=== PATIENT | female | born 1935 | race Caucasian/White ===

== ENCOUNTER 2020-01-25 15:42 | Inpatient (IN) | payer MEDICARE, OTHER ==
[~2020-01-25] VITALS: Ht 154.9 cm; Wt 52.6 kg
--- NOTE | 2020-01-25 16:00 | NUR ---
Pt's daughter arrived and is at bedside. spoke with pt and daughter about plan of care.
[2020-01-25 16:14] LABS: BASOPHILS % (AUTO) 0.7 % (0.0-2.0); EOSINOPHILS # (AUTO) 0.1 K/uL (0.0-0.7); HEMATOCRIT 37.4 % (31.2-41.9); HEMOGLOBIN 12.5 g/dL (10.9-14.3); LYMPHOCYTES # (AUTO) 0.8 K/uL (20.0-40.0); LYMPHOCYTES % (AUTO) 12.4 % (20.5-51.5); MEAN CORPUSCULAR HEMOGLOBIN 30.6 uug (24.7-32.8); MEAN CORPUSCULAR HGB CONC 34 g/dL (32.3-35.6); MEAN CORPUSCULAR VOLUME 91.3 fL (75.5-95.3); MONOCYTES # (AUTO) 0.8 K/uL (2.0-10.0); MONOCYTES % (AUTO) 12.2 % (0.0-11.0); NEUTROPHILS # (AUTO) 4.8 K/uL (1.8-8.9); NEUTROPHILS % (AUTO) 73.7 % (38.5-71.5); PLATELET COUNT (AUTO) 286 K/uL (179-408); RED BLOOD CELL COUNT(AUTO) 4.09 MIL/uL (3.63-4.92); WHITE BLOOD COUNT (AUTO) 6.4 K/uL (3.8-11.8)
[2020-01-25 16:18] LABS: CARBON DIOXIDE 28 mmol/L (21-32); CHLORIDE 98 mmol/L (98-107); CREATININE 1.1 mg/dL (0.6-1.3); GLUCOSE 88 mg/dL (74-106); POTASSIUM 4.1 mmol/L (3.5-5.1); UREA NITROGEN, BLOOD 47 mg/dL (7-18)
[2020-01-25] MEDS ORDERED: POLY17PO4 PO (16:21)
[2020-01-25] MEDS ORDERED: LUBI24CA5 PO (16:21)
[2020-01-25] MEDS ORDERED: DICY20TA11 PO (16:21)
[2020-01-25] MEDS ORDERED: IBUP-76 PO (16:21)
[2020-01-25] MEDS ORDERED: CLON0.5T4 PO (16:21)
[2020-01-25] MEDS ORDERED: LINA145C PO (16:21)
[2020-01-25] MEDS ORDERED: PANT40TA49 PO (16:21)
[2020-01-25] MEDS ORDERED: ONDA-104 PO (16:21)
[2020-01-25] MEDS ORDERED: PHEN95TA44 PO (16:21)
[2020-01-25] MEDS ORDERED: FLUO20CA36 PO (16:21)
[2020-01-25] MEDS ORDERED: LIDO1KIT TP (16:21)
[2020-01-25 16:24] LABS: ALANINE AMINOTRANSFERASE 58 U/L (14-59); ALKALINE PHOSPHATASE 70 U/L (50-136); ASPARTATE AMINOTRANSFERASE 48 U/L (15-37); BILIRUBIN,DIRECT 0.3 mg/dL (0.0-0.2); BILIRUBIN,TOTAL 0.6 mg/dL (0.2-1.0); TOTAL PROTEIN, SERUM 7.7 g/dL (6.4-8.2)
[2020-01-25 16:29] LABS: ACETAMINOPHEN < 2.0 ug/mL (10-30); ETHANOL < 3 MG/DL (0-0)
[2020-01-25] MEDS ORDERED: IV NORMAL SALINE 500 ML BAG IV ONE (16:30)
[2020-01-25 17:00] LABS: *CLARITY,URINE SLIGHTLY CLOUDY (CLEAR); *COLOR,URINE YELLOW (YELLOW); *KETONES,URINE 2+ (NEGATIVE); *UROBILINOGEN,URINE 0.2 E.U./dl (NORMAL); LEUKOCYTE ESTERASE ,URINE NEGATIVE (NEGATIVE); NITRITE, URINE NEGATIVE (NEGATIVE); UGLUCOSE NEGATIVE (NEGATIVE)
[2020-01-25 17:06] LABS: *BILIRUBIN,URIN 2+ (NEGATIVE)
[2020-01-25 17:08] LABS: *BLOOD, URINE NEGATIVE (NEGATIVE)
[2020-01-25 17:12] LABS: BACTERIA,URINE NONE SEEN /HPF (NONE SEEN); SQUAMOUS EPITHELIAL CELL,UR MANY /HPF (NONE SEEN); URINE AMORPHOUS URATE MANY /HPF
[2020-01-25 17:13] LABS: MUCUS,URINE MANY /LPF (0-FEW)
[2020-01-25 17:16] LABS: *AMPHETAMINE, URINE NEGATIVE (NEGATIVE); *BARBITURATE, URINE NEGATIVE (NEGATIVE); *CANNABINOID, URINE POSITIVE (NEGATIVE); *COCCAINE, URINE NEGATIVE (NEGATIVE); *OPIATE, URINE NEGATIVE (NEGATIVE); *PHENCYCLIDINE SCREEN,URINE NEGATIVE (NEGATIVE)
--- NOTE | 2020-01-25 17:29 | NUR ---
Pt trans to [facility], NAD noted.
[2020-01-25 17:45] VITALS: BP 156/58
[2020-01-25] MEDS ORDERED: BLOOD SUGAR DIAGNOSTIC 1 EACH STRIP VI ONE (17:45)
[2020-01-25] MEDS ORDERED: MAG HYDROX/AL HYDROX/SIMETH 30 ML LIQUID UDC PO PRN (17:45)
[2020-01-25] MEDS ORDERED: MAGNESIUM HYDROXIDE 30 ML LIQUID UDC PO PRN (17:45)
[2020-01-25 20:57] VITALS: BP 127/50
[2020-01-25] MEDS: TEMAZEPAM 7.5 MG CAPSULE PO PRN (21:50)
--- NOTE | 2020-01-26 05:52 | NUR ---
patient was calm and cooperative through the shift, slept intermittently. Patient denies having SI/plan, appropriate in conversation, clear speech, pleasant demeanor . Oriented to self and situation. Drank several cups of water but refused tylenol for Rt. ankle pain, and refused juice and snacks. Refused to be in the room and wanted to stay in the hallway.
[2020-01-26 07:30] VITALS: BP 141/53
[2020-01-26 07:34] LABS: BILIRUBIN,TOTAL 0.6 mg/dL (0.2-1.0); POTASSIUM 3.7 mmol/L (3.5-5.1); TOTAL PROTEIN, SERUM 6.5 g/dL (6.4-8.2)
--- NOTE | 2020-01-26 09:57 | NUR ---
Received patient awake, alert and oriented sitting in chair. Patient is calm, cooperative, and redirectable. She has appropriate interaction with staff. Patient denies SI/HI, denies AH/VH. Patient is confused and disoriented, she requires reality orientation on reason for admission. She minimizes events leading to hospitalization. Patient requires assistance with ADL's and self care, requires assistance with ambulation due to right foot injury. Patient is provided with education about impulse control, able to verbalize understanding.
[2020-01-26] MEDS: FLUOXETINE HCL 20 MG CAPSULE PO SCH (10:50)
--- NOTE | 2020-01-26 13:59 | NUR ---
Family Contact: SW attempted to speak with pt's daughter Padmini [[phone]] but there was no answer and no voice mailbox available to leave message. SW will attempt to contact pt family at a later time regarding safe and proper discharge plan for this pt.
--- NOTE | 2020-01-26 13:59 | NUR ---
Initial Discharge Plan: Pt is currently a resident at [facility] [[email or web address] [[address] [address]; [phone]] and will be discharged back to the facility when ready. JESSICA will speak with pt's daughter Padmini [[phone]]. JESSICA will continue to collaborate with pt, family, and MD regarding appropriate discharge plans for this pt. SW will form a safe and proper discharge plan.
--- NOTE | 2020-01-26 14:35 | NUR ---
Family Contact: JESSICA spoke with Padmini, pts daughter, at [phone], who confirmed that pt will be returning to [facility]. Padmini clarified that [employer] is the property management company of the independent living facility where pt resides [[address] [place] [address]], and pt receives in-home living assistance services from [facility], business services representative Catherine ([phone]).
[2020-01-26 16:05] VITALS: BP 117/46
[2020-01-26] MEDS: DIVALPROEX 125 MG TABLET.DR PO SCH (16:45)
[2020-01-26] MEDS ORDERED: ONDANSETRON HCL 4 MG TABLET PO PRN (16:45)
[2020-01-26] MEDS ORDERED: DICYCLOMINE HCL 20 MG TABLET PO PRN (16:45)
[2020-01-26] MEDS ORDERED: MIRALAX 17 GM POWD.PACK PO PRN (16:45)
[2020-01-26] MEDS: OLANZAPINE 2.5 MG TABLET PO SCH (20:15)
[2020-01-26 20:18] VITALS: BP 127/51
--- NOTE | 2020-01-26 21:04 | NUR ---
Received patient in [facility]. Patient is calm, cooperative, hyperverbal, attention seeking and redirectable. Patient is confused and disoriented, poor insight and por judgement. Provided assistance when patient needed to use the restroom due to right foot injury. Patient is med compliant. No behavioral issue at this time. Will remain in a psych facility for further evaluation and treatment.
[2020-01-26] MEDS: TEMAZEPAM 7.5 MG CAPSULE PO PRN (21:45)
[2020-01-26] MEDS: CLONAZEPAM 0.5 MG TABLET PO PRN (23:28)
[2020-01-27 07:30] VITALS: BP 137/61
[2020-01-27] MEDS: DIVALPROEX 125 MG TABLET.DR PO SCH ×2 (09:23→16:26)
[2020-01-27] MEDS: PANTOPRAZOLE SODIUM 40 MG TABLET.DR PO SCH (09:23)
[2020-01-27] MEDS: FLUOXETINE HCL 20 MG CAPSULE PO SCH (09:23)
[2020-01-27 16:00] VITALS: BP 118/54
[2020-01-27 20:09] VITALS: BP 105/43
[2020-01-27] MEDS: OLANZAPINE 2.5 MG TABLET PO SCH (20:52)
[2020-01-27] MEDS: TEMAZEPAM 7.5 MG CAPSULE PO PRN (22:11)
--- NOTE | 2020-01-28 06:58 | NUR ---
Pt. verbally responsive, tearful at times, and restless. Cooperative with medications. swallowed whole routine meds. Pt. noted with increase behavior and unable to sleep and PRN was given as order. Pt noted with urine culture e.coli. MD aware and acknowledged reviewed. Pt slept approx 6 hours during night. breathing even and awake to touch.
[2020-01-28 07:30] VITALS: BP 130/62
[2020-01-28] MEDS: PANTOPRAZOLE SODIUM 40 MG TABLET.DR PO SCH (08:57)
[2020-01-28] MEDS: FLUOXETINE HCL 20 MG CAPSULE PO SCH (08:57)
[2020-01-28] MEDS: DIVALPROEX 125 MG TABLET.DR PO SCH ×2 (08:57→17:44)
[2020-01-28 16:00] VITALS: BP 125/48
[2020-01-28] MEDS: CEphaleXIN 250 MG CAPSULE PO SCH ×2 (17:54→22:38)
[2020-01-28 20:22] VITALS: BP 140/52
[2020-01-28] MEDS: OLANZAPINE 2.5 MG TABLET PO SCH (20:24)
--- NOTE | 2020-01-28 21:03 | NUR ---
PATIENT RECEIVED IN HALLWAY SHE IS CALM AND COOPERATIVE. PATIENT COMPLAINT WITH MEDICATION. PATIENT IN NO APPARENT DISTRESS WILL CONTINUE TO MONITOR. PATIENT IS ALERT AND ORIENTED X1.PATIENT IS EASILY IRRITABLE, HOWEVER IS REDIRECTABLE, WILL CONTINUE TO MONITOR. PATIENT BECOMES TEARFUL AT TIMES REQUIRES REDIRECTION.
[2020-01-29] MEDS: CEphaleXIN 250 MG CAPSULE PO SCH ×3 (06:17→21:04)
[2020-01-29 07:30] VITALS: BP 137/53
--- NOTE | 2020-01-29 07:30 | NUR ---
resting comfortably on bed, awaiting breakfast. no discomfort verbalized
[2020-01-29] MEDS: IBUPROFEN 200 MG TABLET PO PRN ×2 (08:35→16:55)
[2020-01-29] MEDS: FLUOXETINE HCL 20 MG CAPSULE PO SCH (08:35)
[2020-01-29] MEDS: PANTOPRAZOLE SODIUM 40 MG TABLET.DR PO SCH (08:35)
[2020-01-29] MEDS: DIVALPROEX 125 MG TABLET.DR PO SCH ×2 (08:35→16:53)
--- NOTE | 2020-01-29 09:26 | NUR ---
sleeping comfortable, no distress noted.
[2020-01-29 16:28] VITALS: BP 133/54
[2020-01-29 20:08] VITALS: BP 140/50
[2020-01-29] MEDS: OLANZAPINE 2.5 MG TABLET PO SCH (21:03)
[2020-01-29] MEDS: CLONAZEPAM 0.5 MG TABLET PO PRN (21:09)
--- NOTE | 2020-01-29 23:16 | NUR ---
RECEIVED PATIENT IN HALLWAY IN A FIORELLA CHAIR. SHE IS EASILY IRRITABLE AND KEPT PUTTING HER FINGERS IN HER MOUTH SEVERAL TIMES SAYING 'I NEED MY DENTURES.AM NOT KIDDING'. SHE WAS RE DIRECTED.SHE THEN STARTED PULLING OUT HER DIAPER. HAS POOR INSIGHT.SHE IS COOPERATIVE WITH HER MEDICATIONS AND CARE. SLEEPING IN BED AND VISUAL CHECKS MADE ON HER FOR SAFETY.WILL CONTINUE TO MONITOR.
[2020-01-30] MEDS: CEphaleXIN 250 MG CAPSULE PO SCH ×3 (06:17→21:06)
--- NOTE | 2020-01-30 06:25 | NUR ---
SLEPT FOR ABOUT 8;00HRS.TAB KEFLEX 250MG GIVEN.LIBERAL FLUIDS ENCOURAGED.
[2020-01-30 07:30] VITALS: BP 149/49
[2020-01-30] MEDS: DIVALPROEX 125 MG TABLET.DR PO SCH ×2 (08:57→16:07)
[2020-01-30] MEDS: PANTOPRAZOLE SODIUM 40 MG TABLET.DR PO SCH (08:57)
[2020-01-30] MEDS: FLUOXETINE HCL 20 MG CAPSULE PO SCH (08:57)
[2020-01-30] MEDS: CLONAZEPAM 0.5 MG TABLET PO PRN ×2 (10:46→19:41)
[2020-01-30 16:59] VITALS: BP 130/48
[2020-01-30] MEDS: ACETAMINOPHEN 325 MG TABLET PO PRN (19:40)
[2020-01-30 20:40] VITALS: BP 109/54
[2020-01-30] MEDS: OLANZAPINE 2.5 MG TABLET PO SCH (21:06)
[2020-01-30] MEDS: TEMAZEPAM 7.5 MG CAPSULE PO PRN (23:22)
[2020-01-31] MEDS: CEphaleXIN 250 MG CAPSULE PO SCH ×3 (05:56→21:14)
--- NOTE | 2020-01-31 06:34 | NUR ---
Received Pt in the hallway, awake and sitting up in a payal chair. A+Ox1-2, Pt is confused, forgetful, and disorganized. Noted to have mild temperature at the beginning of shift at 99.6, Pt also noted to be anxious and restless. Cooling measures administered and Tylenol 650mg with Klonopin 0.25mg administered with good effect. Pt's temp upon re-check was 98.4, all other VS stable, denied pain. Will continue to monitor.
[2020-01-31 07:30] VITALS: BP 134/50
[2020-01-31] MEDS: FLUOXETINE HCL 20 MG CAPSULE PO SCH (08:16)
[2020-01-31] MEDS: DIVALPROEX 125 MG TABLET.DR PO SCH ×2 (08:16→16:34)
[2020-01-31] MEDS: PANTOPRAZOLE SODIUM 40 MG TABLET.DR PO SCH (08:16)
--- NOTE | 2020-01-31 08:48 | NUR ---
Received patient awake, alert and oriented to person only sitting in chair. Patient is disoriented and confused, she requires frequent reality orientation. Patient is labile in mood, she frequently cries and yells to herself without stimuli and requires redirection. patient is encouraged to communicate her needs to staff appropriately. Patient denies SI/HI, denies AH/Vh but appears internally preoccupied and appears suspicious of staff. Patient is able to tolerate food and fluids, but requires staff assistance with ADL's and self care. Patient is medication adherent, no adverse reaction noted.
[2020-01-31] MEDS: ACETAMINOPHEN 325 MG TABLET PO PRN (12:59)
[2020-01-31 13:00] VITALS: BP 119/41
[2020-01-31] MEDS: CLONAZEPAM 0.5 MG TABLET PO PRN (19:32)
[2020-01-31 20:28] VITALS: BP 128/61
[2020-01-31] MEDS: OLANZAPINE 2.5 MG TABLET PO SCH (20:30)
[2020-01-31] MEDS: IBUPROFEN 200 MG TABLET PO PRN (20:30)
[2020-01-31] MEDS: TEMAZEPAM 7.5 MG CAPSULE PO PRN (21:38)
[2020-02-01] MEDS: CEphaleXIN 250 MG CAPSULE PO SCH ×3 (05:44→21:10)
--- NOTE | 2020-02-01 06:53 | NUR ---
Received Pt in the hallway, awake and sitting up in a payal chair. A+Ox1-2, Pt is confused, forgetful, disoriented, and disorganized. Pt also noted to be anxious and restless. Klonopin 0.25mg administered with minimal effect. Continued to be restless, Restoril 7.5mg administered with moderate effect. VS stable, generalized chronic pain controlled with Motrin 200mg. Noted to have episodes of unprovoked crying out and yelling, redirection and emotional support provided. ADLS provided, safety maintained.
[2020-02-01 07:30] VITALS: BP 135/50
[2020-02-01] MEDS: PANTOPRAZOLE SODIUM 40 MG TABLET.DR PO SCH (08:23)
[2020-02-01] MEDS: DIVALPROEX 125 MG TABLET.DR PO SCH ×2 (08:23→16:22)
[2020-02-01] MEDS: FLUOXETINE HCL 20 MG CAPSULE PO SCH (08:23)
--- NOTE | 2020-02-01 09:09 | NUR ---
Social Work PC Hearing Notification: packing room worker contacted patients daughter Padmini, ([phone]) and notified patients probable cause of hearing today.
[2020-02-01] MEDS: ACETAMINOPHEN 325 MG TABLET PO PRN (11:38)
[2020-02-01] MEDS: CLONAZEPAM 0.5 MG TABLET PO PRN (13:19)
--- NOTE | 2020-02-01 15:05 | NUR ---
Social Work Individual Therapy: Air Cargo Specialist met with patient and provided brief individual counseling. Air Cargo Specialist prompted patient to continue to participate in self-care, bathing, and grooming. Patient presents disoriented and with disorganized thought process. Patient appears paranoid of her surroundings and in unable to engage in a meaningful conversation. Air Cargo Specialist will remain available to the patient and continue to provide support as needed.
[2020-02-01 15:55] VITALS: BP 137/49
[2020-02-01 20:20] VITALS: BP 112/48
[2020-02-01] MEDS: OLANZAPINE 2.5 MG TABLET PO SCH (20:23)
--- NOTE | 2020-02-01 21:22 | NUR ---
GPS: Pt sitting up in payal chair at [facility], A/O x2. Pt is confused, and trying to remove underpants, pt. also very talkative and incoherent words. Pt also noted to be anxious, restless and forgetful. Frequently redirected and reoriented to place and person. Pt. compliant with routine meds and cooperative with care, will continue monitor due to increase anxiousness and talkative.
[2020-02-01] MEDS: TEMAZEPAM 7.5 MG CAPSULE PO PRN (23:44)
--- NOTE | 2020-02-02 02:15 | NUR ---
Pt. was unable to fall asleep and trying to get out of bed unassisted, stripping clothing off with agitation. PRN Restoril was administered as order and monitor with noted effectiveness.
[2020-02-02] MEDS: CEphaleXIN 250 MG CAPSULE PO SCH ×3 (06:05→22:57)
--- NOTE | 2020-02-02 06:33 | NUR ---
Pt. PRN was effective, pt slept 6.45min during shift. No new excessive behavior noted. Am marcial care provided and pt was left in bed resting.
[2020-02-02 07:30] VITALS: BP 148/56
[2020-02-02] MEDS: FLUOXETINE HCL 20 MG CAPSULE PO SCH (08:29)
[2020-02-02] MEDS: DIVALPROEX 125 MG TABLET.DR PO SCH ×2 (08:29→16:42)
[2020-02-02] MEDS: PANTOPRAZOLE SODIUM 40 MG TABLET.DR PO SCH (08:29)
[2020-02-02 16:00] VITALS: BP 129/37
[2020-02-02] MEDS: CLONAZEPAM 0.5 MG TABLET PO PRN (16:42)
--- NOTE | 2020-02-02 17:24 | NUR ---
Received patient this am in bed. Assisted to chair. Patient calm at times but had many outbursts of anxiety which required redirection and medication. Patient is very needy and paranoid of the other patients. Multiple times patients behavior quickly escalated and patient would scream and cry, needing to be reassured. No distress at this moment but continuing to monitor for safety and behavioral problems.
[2020-02-02] MEDS: IBUPROFEN 200 MG TABLET PO PRN (18:19)
[2020-02-02] MEDS: OLANZAPINE 2.5 MG TABLET PO SCH (20:31)
[2020-02-02] MEDS: ACETAMINOPHEN 325 MG TABLET PO PRN (20:38)
[2020-02-02 20:51] VITALS: BP 134/49
[2020-02-03] MEDS: CEphaleXIN 250 MG CAPSULE PO SCH ×3 (06:00→21:16)
[2020-02-03 07:30] VITALS: BP 165/57
[2020-02-03] MEDS: PANTOPRAZOLE SODIUM 40 MG TABLET.DR PO SCH (08:35)
[2020-02-03] MEDS: DIVALPROEX 125 MG TABLET.DR PO SCH ×2 (08:35→17:29)
[2020-02-03] MEDS: FLUOXETINE HCL 20 MG CAPSULE PO SCH (08:35)
[2020-02-03] MEDS: CLONAZEPAM 0.5 MG TABLET PO PRN (09:47)
[2020-02-03] MEDS ORDERED: CLONIDINE HCL 0.1 MG TABLET PO PRN (10:30)
[2020-02-03] MEDS: ACETAMINOPHEN 325 MG TABLET PO PRN (10:32)
[2020-02-03 16:00] VITALS: BP 144/93
[2020-02-03 20:00] VITALS: BP 142/70
[2020-02-03] MEDS: OLANZAPINE 2.5 MG TABLET PO SCH (21:16)
[2020-02-03] MEDS: TEMAZEPAM 7.5 MG CAPSULE PO PRN (22:58)
[2020-02-04] MEDS: CEphaleXIN 250 MG CAPSULE PO SCH ×2 (06:14→13:16)
[2020-02-04 07:30] VITALS: BP 162/50
[2020-02-04] MEDS: DIVALPROEX 125 MG TABLET.DR PO SCH ×2 (08:44→16:23)
[2020-02-04] MEDS: PANTOPRAZOLE SODIUM 40 MG TABLET.DR PO SCH (08:44)
[2020-02-04] MEDS: FLUOXETINE HCL 20 MG CAPSULE PO SCH (08:44)
--- NOTE | 2020-02-04 08:51 | NUR ---
Gps/Accountant Certified Public- Loud , yelling demanding behavior this am, [place], needed redirections . Toileted as needed, continent of urine, urgency noted. Compliant with routine am meds.Safety reviewed and emphasized.
[2020-02-04] MEDS: CLONAZEPAM 0.5 MG TABLET PO PRN (09:30)
--- NOTE | 2020-02-04 12:51 | NUR ---
Gpa?subscription agent- Remains up on her payal- chair by the Nurses station, monitored closely for her needs. Patient called daughter she told her to come pick her up , she is going home. Daughter spoked to [facility] no dc. plan at this time, daughter was well informed.
[2020-02-04] MEDS: IBUPROFEN 200 MG TABLET PO PRN (13:01)
--- NOTE | 2020-02-04 15:05 | NUR ---
Social Work Individual Therapy: Air Defense Artillery Senior Sergeant met with patient and provided brief individual counseling. Air Defense Artillery Senior Sergeant prompted patient to continue to participate in self-care, bathing, and grooming. Patient presents anxious and disorganized. Patient is yelling intermittently and is unable to maintain a meaningful conversation. Air Defense Artillery Senior Sergeant will remain available to the patient and continue to provide support as needed.
--- NOTE | 2020-02-04 15:10 | NUR ---
Social Work Firearms Report ([employer]): Case Finisher completed and submitted a [employer] firearms report for [address] grave disability certification. A copy of report has been placed in patient chart.
[2020-02-04 15:15] VITALS: BP 115/47
[2020-02-04] MEDS: OLANZAPINE 2.5 MG TABLET PO SCH (20:23)
[2020-02-04 21:10] VITALS: BP 135/47
[2020-02-04] MEDS: TEMAZEPAM 7.5 MG CAPSULE PO PRN (21:54)
--- NOTE | 2020-02-04 23:08 | NUR ---
PATIENT RECEIVED IN THE HALLWAY AWAKE SITTING UP IN FIORELLA-CHAIR. PATIENT ALERT/ORIENTED X1, PATIENT REMAINS CONFUSED, FORGETFUL, DISORIENTED AND DISORGANIZED. PATIENT COMPLAINT WITH MEDICATION. NO APPARENT DISTRESS NOTED, WILL CONTINUE TO MONITOR.
[2020-02-05 07:30] VITALS: BP 161/59
[2020-02-05] MEDS: IBUPROFEN 200 MG TABLET PO PRN ×2 (07:38→13:28)
[2020-02-05] MEDS: FLUOXETINE HCL 20 MG CAPSULE PO SCH (08:14)
[2020-02-05] MEDS: DIVALPROEX 125 MG TABLET.DR PO SCH ×2 (08:14→17:20)
[2020-02-05] MEDS: PANTOPRAZOLE SODIUM 40 MG TABLET.DR PO SCH (08:14)
[2020-02-05] MEDS: CLONAZEPAM 0.5 MG TABLET PO PRN ×2 (10:44→21:43)
[2020-02-05 15:18] VITALS: BP 124/49
--- NOTE | 2020-02-05 16:30 | NUR ---
Gps/Sludge Filtration Operator- Constant redirections provided, patient calling out, anxious, complained skin very dry, requesting lotion to help her skin, lotion offered, verbalized relief. Noted patient disrobing , discouraged from doing so.
[2020-02-05 20:00] VITALS: BP 118/56
--- NOTE | 2020-02-05 20:00 | NUR ---
RECEIVE PATIENT SITING IN A FIORELLA CHAIR IN THE HALLWAY CLOSE TO THE NURSING STATION. SHE IS NOTED A/O X 2. HYPERVERBAL. AFFECT IS BRIGHT, MOOD IS ANXIOUS. PATIENT DENIED SI/HI/VH/AH. SHE IS ABLE TO CFS. V/S STABLE AT THIS TIME. PATIENT IS REASSURED FOR HER SAFETY. SAFETY AND FALL PRECAUTION IN PLACE. WILL CONTINUE TO MONITOR,
[2020-02-05] MEDS: OLANZAPINE 2.5 MG TABLET PO SCH (20:46)
[2020-02-05] MEDS: TEMAZEPAM 7.5 MG CAPSULE PO PRN (23:35)
[2020-02-06 07:30] VITALS: BP 122/48
[2020-02-06] MEDS: DIVALPROEX 125 MG TABLET.DR PO SCH ×2 (08:22→17:21)
[2020-02-06] MEDS: FLUOXETINE HCL 20 MG CAPSULE PO SCH (08:22)
[2020-02-06] MEDS: PANTOPRAZOLE SODIUM 40 MG TABLET.DR PO SCH (08:22)
--- NOTE | 2020-02-06 09:45 | NUR ---
Gps/Waiter/Waitress Third Class- Patient was yelling, cursing at the staff in front of the Nurses station, stated" i'd been here too long and i need to get out of here, " patient calling staff names. Patient pacing back and forth the hallway w/o any adaptive devices, enc. to use wallker. 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
[2020-02-06] MEDS: CLONAZEPAM 0.5 MG TABLET PO PRN (10:40)
--- NOTE | 2020-02-06 10:41 | NUR ---
Gps/Traditional Maori Health Practitioner- Patient extremely anxious, kept complaining of itching, no rashes noted, claimed stayed in the patio with the group but she starting to itched again, patient kept up on her payal-chair. prn clonopin 0.25 mg given po to < anxiety..Encouraged participation in her group.
[2020-02-06 16:00] VITALS: BP 133/44
--- NOTE | 2020-02-06 20:00 | NUR ---
RECEIVED PATIENT IN THE HALLWAY WAY SITTING IN A FIORELLA CHAIR CLOSED TO THE NURSING STATION. SHE IS NOTED A/O X 3. NOTED HYPERVERBAL. SHE IS ABLE TO VERBALIZED FEELINGS. PT DENIES SI/HI/VH/AH. PT IS ABLE TO CFS. PT IS REASSURED FOR HER SAFETY. V/S STABLE. SAFETY AND FALL PRECAUTION IN PLACE. WILL CONTINUE TO MONITOR.
[2020-02-06 20:23] VITALS: BP 117/60
[2020-02-06] MEDS: OLANZAPINE 2.5 MG TABLET PO SCH (20:47)
[2020-02-07] MEDS: CLONAZEPAM 0.5 MG TABLET PO PRN ×2 (03:12→21:36)
--- NOTE | 2020-02-07 03:35 | NUR ---
PATIENT WOKE UP AND WAS NOTED IRRITABLE ANXIOUS AND HYPERVERBAL. PT WAS REASSURED AND REDIRECTED. KLONOPINE 0.25MG PO PRN WAS GIVEN. WILL CONTINUE TO MONITOR.
[2020-02-07 07:10] LABS: BASOPHILS % (AUTO) 0.5 % (0.0-2.0); EOSINOPHILS # (AUTO) 0.3 K/uL (0.0-0.7); EOSINOPHILS % (AUTO) 6.4 % (0.0-7.0); HEMATOCRIT 29.9 % (31.2-41.9); LYMPHOCYTES # (AUTO) 1.2 K/uL (20.0-40.0); LYMPHOCYTES % (AUTO) 25.4 % (20.5-51.5); MEAN CORPUSCULAR HEMOGLOBIN 30.9 uug (24.7-32.8); MEAN CORPUSCULAR HGB CONC 33 g/dL (32.3-35.6); MEAN CORPUSCULAR VOLUME 92.4 fL (75.5-95.3); MONOCYTES # (AUTO) 0.5 K/uL (2.0-10.0); MONOCYTES % (AUTO) 11.2 % (0.0-11.0); NEUTROPHILS # (AUTO) 2.8 K/uL (1.8-8.9); NEUTROPHILS % (AUTO) 56.5 % (38.5-71.5); PLATELET COUNT (AUTO) 349 K/uL (179-408); RED BLOOD CELL COUNT(AUTO) 3.24 MIL/uL (3.63-4.92); WHITE BLOOD COUNT (AUTO) 4.9 K/uL (3.8-11.8)
[2020-02-07 07:30] VITALS: BP 167/42
[2020-02-07 07:31] LABS: THYROID STIMULATING HORMONE 6.944 mIU/mL (0.358-3.740)
[2020-02-07 07:48] LABS: BILIRUBIN,TOTAL 0.2 mg/dL (0.2-1.0); CREATININE 0.9 mg/dL (0.6-1.3); MAGNESIUM 2.1 mg/dL (1.8-2.4); PHOSPHOROUS 4.2 mg/dL (2.5-4.9); POTASSIUM 4.4 mmol/L (3.5-5.1); TOTAL PROTEIN, SERUM 6.3 g/dL (6.4-8.2)
[2020-02-07] MEDS: FLUOXETINE HCL 20 MG CAPSULE PO SCH (09:18)
[2020-02-07] MEDS: DIVALPROEX 125 MG TABLET.DR PO SCH ×2 (09:18→16:30)
[2020-02-07] MEDS: PANTOPRAZOLE SODIUM 40 MG TABLET.DR PO SCH (09:18)
--- NOTE | 2020-02-07 14:32 | NUR ---
Social Work Individual Therapy: No group is being held due to angel virus precautions. loft worker met with patient to discus topic the importance of a support system. Patient presenting problem is neglecting self-care. Patient presents with attention intact and able to engage in meaningful conversation. SW provided active listening and positive affirmation. Patient shared about her children and the love she has for her grandchildren and that she likes to spend time with them and talk to them.
[2020-02-07] MEDS: ACETAMINOPHEN 325 MG TABLET PO PRN (14:52)
--- NOTE | 2020-02-07 14:55 | NUR ---
Social Work Family Contact: SW left a voicemail for pt's daughter Padmini ([phone]) to give this field underwriter a call back regarding discharge planning for tomorrow.
[2020-02-07 15:41] VITALS: BP 128/50
[2020-02-07 20:00] VITALS: BP 152/52
[2020-02-07] MEDS: OLANZAPINE 2.5 MG TABLET PO SCH (20:20)
[2020-02-07 22:00] VITALS: BP 152/52
[2020-02-08] MEDS: ACETAMINOPHEN 325 MG TABLET PO PRN ×2 (04:17→10:49)
--- NOTE | 2020-02-08 04:21 | NUR ---
C/O GUM PAIN 04/19,TYLENOL 650 MG WAS GIVEN PER REQUEST WITH PENDING RESULT.STILL NEEDY ,DEMANDING,MANIPULATIVE HYPERVERBAL AND ATTENTION SEEKING.
[2020-02-08] MEDS: FLUOXETINE HCL 20 MG CAPSULE PO SCH (08:02)
[2020-02-08] MEDS: DIVALPROEX 125 MG TABLET.DR PO SCH (08:02)
[2020-02-08] MEDS: PANTOPRAZOLE SODIUM 40 MG TABLET.DR PO SCH (08:02)
[2020-02-08 08:22] VITALS: BP 114/66
--- NOTE | 2020-02-08 08:46 | NUR ---
Social Work Discharge Note: Patient will be discharged back to [facility] [address] [place] [address] ([phone]). Spoke with Catherine patient safety manager at the facility who states they are ready to accept the patient back today. Patients daughter, Padmini ([phone]) is aware and agreeable with discharge plans and will be providing transportation for the patient tomorrow at 2pm. Patient will follow up with her primary care physician Dr. Aramis Moraes [address], [place] [address] ([phone]) and will have a phone follow up with the doctor within 24 hours. Patient is referred to [facility] for outpatient psychiatric services [address] [place] [address] ([phone]) and has an initial appointment on Sunday February 16, 2020 at12pm with a Sales Representative Supervisor. Patient was referred for home health services by [facility] (ph: [phone]; fax: [phone]) for medication management, physical therapy, and nursing follow ups. Patient presents with normal mood and congruent affect. Patient denies suicidal or homicidal ideation. Patient was also provided with outpatient mental health resources to [facility] Line , and the National Suicide Prevention Lifeline .
[2020-02-08] MEDS ORDERED: CYANOCOBALAMIN 1000 MCG/ML VIAL IM SCH (09:00)
[2020-02-08] MEDS: CLONAZEPAM 0.5 MG TABLET PO PRN (10:49)
--- NOTE | 2020-02-08 11:01 | NUR ---
Social Work Individual Therapy: No group is being held due to COVID-19 virus precautions. kitchen and counter worker met with patient to discuss topic Dealing with Crisis. Patient presenting problem is neglecting self-care. Patient presents to be alert and oriented. She is able to have a meaningful conversation. SW provided active listening and positive affirmation. Patient shared about how she is able to deal with crisis and stated that she "walks away from toxic situations". Patient was giving this com writer insight. This com writer actively listened and provided emotional support.
--- NOTE | 2020-02-08 11:03 | NUR ---
Social Work Individual Therapy: No group is being held due to COVID-19 virus precautions. sewage disposal worker met with patient to discuss topic Dealing with Crisis. Patient presenting problem is labile mood. SW provided active listening and positive affirmation. Patient demonstrates paranoid thoughts stating, "that her body is not well". Patient stated that she is feeling well with medication. Patient presents hyperverbal and labile with this leader writer. Patient is able to hold a conversation, but it is not meaningful.
--- NOTE | 2020-02-08 14:13 | NUR ---
GPS: patient discharge , with family member pick her up ,patient denies SI and HI, patient verbalizes that shes happy, patient compliant with medication no distress at this time, MD aware of the DC
== END 2020-02-08 14:17 | disposition home health service (06) | DRG 885 ==
LOC: ER 15:45 → GPS 17:19
PROVIDERS: ADMIT Psychiatry & Neurology Psychiatry; ATTEND Hospitalist
DX: F29 Unspecified psychosis not due to a substance or known physiological condition (principal); N17.0 Acute kidney failure with tubular necrosis; F03.91 Unspecified dementia, unspecified severity, with behavioral disturbance; D68.69 Other thrombophilia; N39.0 Urinary tract infection, site not specified; R45.851 Suicidal ideations; R62.7 Adult failure to thrive; Z68.20 Body mass index [BMI] 20.0-20.9, adult; K21.9 Gastro-esophageal reflux disease without esophagitis; E03.9 Hypothyroidism, unspecified; E11.9 Type 2 diabetes mellitus without complications; E53.8 Deficiency of other specified B group vitamins; I10 Essential (primary) hypertension; F39 Unspecified mood [affective] disorder; B96.20 Unspecified Escherichia coli [E. coli] as the cause of diseases classified elsewhere; E78.5 Hyperlipidemia, unspecified; F32.9 Major depressive disorder, single episode, unspecified
CPT/HCPCS: 36415; 80307; 83735; 84100; 84443; 85025; 87077; 87086; 93005; A4663; C1758; G0480-TC; J3420; J7040

== ENCOUNTER 2020-07-03 14:27 | Inpatient (IN) | payer MEDICARE, OTHER ==
[~2020-07-03] VITALS: Ht 157.5 cm; Wt 50.8 kg
[~2020-07-03 14:27] MED LIST: DICY20TA11 PO; IBUP-76 PO; LIDO1KIT TP; LINA145C PO; LUBI24CA5 PO; ONDA-104 PO; PANT40TA4 PO; PHEN95TA44 PO; POLY17PO4 PO
[2020-07-03 15:17] LABS: EOSINOPHILS # (AUTO) 0.1 K/uL (0.0-0.7); HEMOGLOBIN 12.1 g/dL (10.9-14.3); LYMPHOCYTES # (AUTO) 0.9 K/uL (20.0-40.0); LYMPHOCYTES % (AUTO) 21.4 % (20.5-51.5); MEAN CORPUSCULAR HEMOGLOBIN 30.1 uug (24.7-32.8); MEAN CORPUSCULAR HGB CONC 34 g/dL (32.3-35.6); MEAN CORPUSCULAR VOLUME 89.8 fL (75.5-95.3); MONOCYTES # (AUTO) 0.5 K/uL (2.0-10.0); MONOCYTES % (AUTO) 10.9 % (0.0-11.0); NEUTROPHILS # (AUTO) 2.8 K/uL (1.8-8.9); NEUTROPHILS % (AUTO) 64.7 % (38.5-71.5); PLATELET COUNT (AUTO) 316 K/uL (179-408); RED BLOOD CELL COUNT(AUTO) 4.01 MIL/uL (3.63-4.92); WHITE BLOOD COUNT (AUTO) 4.4 K/uL (3.8-11.8)
[2020-07-03 15:24] LABS: ALANINE AMINOTRANSFERASE 14 U/L (14-59); ALKALINE PHOSPHATASE 64 U/L (50-136); ASPARTATE AMINOTRANSFERASE 11 U/L (15-37); BILIRUBIN,DIRECT < 0.1 mg/dL (0.0-0.2); BILIRUBIN,TOTAL 0.4 mg/dL (0.2-1.0); CARBON DIOXIDE 30 mmol/L (21-32); CHLORIDE 101 mmol/L (98-107); GLUCOSE 93 mg/dL (74-106); TOTAL PROTEIN, SERUM 7.4 g/dL (6.4-8.2); UREA NITROGEN, BLOOD 9 mg/dL (7-18)
[2020-07-03] MEDS ORDERED: TEMA15CA PO (15:47)
[2020-07-03] MEDS ORDERED: TRAZ-182 PO (15:47)
[2020-07-03] MEDS ORDERED: ERGO500040 PO (15:47)
[2020-07-03] MEDS ORDERED: FLUO10CA27 PO (15:47)
[2020-07-03] MEDS ORDERED: MAG30ORA PO (15:47)
[2020-07-03] MEDS ORDERED: MAGN400O6 PO (15:47)
[2020-07-03] MEDS ORDERED: DIVA125T2 PO (15:47)
[2020-07-03] MEDS ORDERED: DOCU100C36 PO (15:47)
[2020-07-03 18:02] LABS: ACETAMINOPHEN < 2.0 ug/mL (10-30); ETHANOL < 3 MG/DL (0-0)
[2020-07-03 20:30] VITALS: BP 184/63
[2020-07-03] MEDS ORDERED: LORAZEPAM 0.5 MG TABLET PO PRN (20:45)
[2020-07-03] MEDS ORDERED: ACETAMINOPHEN 325 MG TABLET PO PRN (20:45)
[2020-07-03] MEDS ORDERED: TEMAZEPAM 7.5 MG CAPSULE PO PRN (20:45)
[2020-07-03] MEDS ORDERED: MAG HYDROX/AL HYDROX/SIMETH 30 ML LIQUID UDC PO PRN (20:45)
[2020-07-03] MEDS ORDERED: BLOOD SUGAR DIAGNOSTIC 1 EACH STRIP VI ONE (20:45)
[2020-07-03] MEDS ORDERED: MAGNESIUM HYDROXIDE 30 ML LIQUID UDC PO PRN (20:45)
[2020-07-04 07:47] VITALS: BP 164/54
[2020-07-04] MEDS: DIVALPROEX 125 MG TABLET.DR PO SCH ×3 (08:58→21:05)
[2020-07-04] MEDS: FLUOXETINE HCL 20 MG CAPSULE PO SCH (08:58)
[2020-07-04 15:22] VITALS: BP 162/59
[2020-07-04] MEDS ORDERED: MIRALAX 17 GM POWD.PACK PO PRN (18:00)
[2020-07-04] MEDS ORDERED: hydrALAZINE HCL 25 MG TABLET PO PRN (18:15)
[2020-07-04 19:58] VITALS: BP 122/62
[2020-07-04] MEDS: TRAZODONE 50 MG TABLET PO SCH (21:05)
[2020-07-04] MEDS: ATORVASTATIN 10 MG TABLET PO SCH (21:06)
[2020-07-04] MEDS: AMLODIPINE 5 MG TABLET PO SCH (21:06)
[2020-07-04] MEDS: OLANZAPINE 2.5 MG TABLET PO SCH (21:06)
[2020-07-04 21:12] LABS: *BILIRUBIN,URIN NEGATIVE (NEGATIVE); *CLARITY,URINE CLEAR (CLEAR); *COLOR,URINE YELLOW (YELLOW); *KETONES,URINE NEGATIVE (NEGATIVE); *UROBILINOGEN,URINE 0.2 E.U./dl (NORMAL); LEUKOCYTE ESTERASE ,URINE 2+ (NEGATIVE); NITRITE, URINE NEGATIVE (NEGATIVE); PH,URINE 7.5 (5.0-8.0); UGLUCOSE NEGATIVE (NEGATIVE)
[2020-07-04 21:18] LABS: *AMPHETAMINE, URINE NEGATIVE (NEGATIVE); *BARBITURATE, URINE NEGATIVE (NEGATIVE); *BLOOD, URINE TRACE INTACT (NEGATIVE); *CANNABINOID, URINE NEGATIVE (NEGATIVE); *COCCAINE, URINE NEGATIVE (NEGATIVE); *OPIATE, URINE NEGATIVE (NEGATIVE); *PHENCYCLIDINE SCREEN,URINE NEGATIVE (NEGATIVE)
[2020-07-04 22:15] LABS: BACTERIA,URINE NONE SEEN /HPF (NONE SEEN); SQUAMOUS EPITHELIAL CELL,UR FEW /HPF (NONE SEEN)
[2020-07-05 07:30] VITALS: BP_SYST 107; BP_SYST 120; BP_DIAS 45
[2020-07-05] MEDS: FLUOXETINE HCL 20 MG CAPSULE PO SCH (08:46)
[2020-07-05] MEDS: DIVALPROEX 125 MG TABLET.DR PO SCH ×4 (08:46→21:00)
[2020-07-05] MEDS: AMLODIPINE 5 MG TABLET PO SCH ×3 (08:51→20:58)
[2020-07-05] MEDS: PANTOPRAZOLE SODIUM 40 MG TABLET.DR PO SCH (08:52)
[2020-07-05] MEDS ORDERED: DOCUSATE SODIUM 100 MG CAPSULE PO PRN (09:00)
[2020-07-05] MEDS: CEphaleXIN 500 MG CAPSULE PO SCH ×2 (14:39→22:00)
[2020-07-05 16:00] VITALS: BP 107/45
[2020-07-05 19:55] VITALS: BP 137/51
[2020-07-05] MEDS: OLANZAPINE 2.5 MG TABLET PO SCH (20:43)
[2020-07-05] MEDS: ATORVASTATIN 10 MG TABLET PO SCH ×2 (20:43→21:00)
[2020-07-05] MEDS: TRAZODONE 50 MG TABLET PO SCH (20:43)
[2020-07-06] MEDS: CEphaleXIN 500 MG CAPSULE PO SCH ×3 (05:50→21:07)
[2020-07-06 07:30] VITALS: BP 128/48
[2020-07-06] MEDS: DIVALPROEX 125 MG TABLET.DR PO SCH ×3 (09:05→20:25)
[2020-07-06] MEDS: FLUOXETINE HCL 20 MG CAPSULE PO SCH (09:14)
[2020-07-06] MEDS: AMLODIPINE 5 MG TABLET PO SCH ×2 (09:14→21:00)
[2020-07-06] MEDS: PANTOPRAZOLE SODIUM 40 MG TABLET.DR PO SCH (09:14)
[2020-07-06 16:00] VITALS: BP 123/46
[2020-07-06 20:22] VITALS: BP 122/72
[2020-07-06] MEDS: OLANZAPINE 2.5 MG TABLET PO SCH (20:25)
[2020-07-06] MEDS: TRAZODONE 50 MG TABLET PO SCH (20:25)
[2020-07-06] MEDS: ATORVASTATIN 10 MG TABLET PO SCH (21:00)
[2020-07-07] MEDS: CEphaleXIN 500 MG CAPSULE PO SCH ×4 (06:12→22:17)
[2020-07-07 07:30] VITALS: BP 145/66
[2020-07-07] MEDS: PANTOPRAZOLE SODIUM 40 MG TABLET.DR PO SCH ×2 (08:05→09:00)
[2020-07-07] MEDS: FLUOXETINE HCL 20 MG CAPSULE PO SCH ×2 (08:05→09:00)
[2020-07-07] MEDS: DIVALPROEX 125 MG TABLET.DR PO SCH ×4 (08:05→21:09)
[2020-07-07] MEDS: AMLODIPINE 5 MG TABLET PO SCH ×3 (08:06→21:12)
[2020-07-07 16:00] VITALS: BP 130/48
[2020-07-07 20:22] VITALS: BP 142/48
[2020-07-07] MEDS: OLANZAPINE 2.5 MG TABLET PO SCH (21:08)
[2020-07-07] MEDS: TRAZODONE 50 MG TABLET PO SCH (21:09)
[2020-07-07] MEDS: ATORVASTATIN 10 MG TABLET PO SCH (21:09)
[2020-07-08] MEDS: CEphaleXIN 500 MG CAPSULE PO SCH ×3 (06:41→21:00)
[2020-07-08 07:30] VITALS: BP 138/48
[2020-07-08] MEDS: DIVALPROEX 125 MG TABLET.DR PO SCH ×3 (08:49→20:58)
[2020-07-08] MEDS: AMLODIPINE 5 MG TABLET PO SCH ×2 (08:49→20:59)
[2020-07-08] MEDS: PANTOPRAZOLE SODIUM 40 MG TABLET.DR PO SCH (08:49)
[2020-07-08] MEDS: FLUOXETINE HCL 20 MG CAPSULE PO SCH (08:49)
[2020-07-08 16:00] VITALS: BP 106/53
[2020-07-08 20:00] VITALS: BP 137/54
[2020-07-08] MEDS: ATORVASTATIN 10 MG TABLET PO SCH (20:58)
[2020-07-08] MEDS: TRAZODONE 50 MG TABLET PO SCH (20:58)
[2020-07-08] MEDS: OLANZAPINE 2.5 MG TABLET PO SCH (20:58)
[2020-07-09] MEDS: CEphaleXIN 500 MG CAPSULE PO SCH (06:00)
[2020-07-09] MEDS: PANTOPRAZOLE SODIUM 40 MG TABLET.DR PO SCH (06:05)
[2020-07-09 07:30] VITALS: BP 128/49
[2020-07-09] MEDS: DIVALPROEX 125 MG TABLET.DR PO SCH ×3 (08:12→20:20)
[2020-07-09] MEDS: AMLODIPINE 5 MG TABLET PO SCH ×2 (08:13→20:21)
[2020-07-09] MEDS: FLUOXETINE HCL 20 MG CAPSULE PO SCH (08:13)
[2020-07-09 16:00] VITALS: BP 124/47
[2020-07-09] MEDS: OLANZAPINE 2.5 MG TABLET PO SCH (20:20)
[2020-07-09] MEDS: TRAZODONE 50 MG TABLET PO SCH (20:20)
[2020-07-09] MEDS: ATORVASTATIN 10 MG TABLET PO SCH (20:21)
[2020-07-09 20:30] VITALS: BP 124/47
[2020-07-10] MEDS: PANTOPRAZOLE SODIUM 40 MG TABLET.DR PO SCH (06:07)
[2020-07-10 07:30] VITALS: BP 145/54
[2020-07-10] MEDS: AMLODIPINE 5 MG TABLET PO SCH ×2 (09:36→20:08)
[2020-07-10] MEDS: FLUOXETINE HCL 20 MG CAPSULE PO SCH (09:36)
[2020-07-10] MEDS: DIVALPROEX 125 MG TABLET.DR PO SCH ×3 (09:36→20:06)
[2020-07-10 16:00] VITALS: BP 107/47
[2020-07-10 20:00] VITALS: BP 136/48
[2020-07-10] MEDS: TRAZODONE 50 MG TABLET PO SCH (20:06)
[2020-07-10] MEDS: OLANZAPINE 2.5 MG TABLET PO SCH (20:06)
[2020-07-10] MEDS: ATORVASTATIN 10 MG TABLET PO SCH (20:08)
[2020-07-11] MEDS: PANTOPRAZOLE SODIUM 40 MG TABLET.DR PO SCH (06:31)
[2020-07-11 07:27] LABS: BASOPHILS # (AUTO) 0.1 K/uL (0.0-8.0); BASOPHILS % (AUTO) 1.6 % (0.0-2.0); EOSINOPHILS # (AUTO) 0.3 K/uL (0.0-0.7); EOSINOPHILS % (AUTO) 5.9 % (0.0-7.0); HEMOGLOBIN 11.5 g/dL (10.9-14.3); LYMPHOCYTES # (AUTO) 1.2 K/uL (20.0-40.0); LYMPHOCYTES % (AUTO) 28.8 % (20.5-51.5); MEAN CORPUSCULAR HEMOGLOBIN 30.9 uug (24.7-32.8); MEAN CORPUSCULAR HGB CONC 34 g/dL (32.3-35.6); MEAN CORPUSCULAR VOLUME 90.9 fL (75.5-95.3); MONOCYTES # (AUTO) 0.4 K/uL (2.0-10.0); MONOCYTES % (AUTO) 8.4 % (0.0-11.0); NEUTROPHILS # (AUTO) 2.4 K/uL (1.8-8.9); NEUTROPHILS % (AUTO) 55.3 % (38.5-71.5); PLATELET COUNT (AUTO) 299 K/uL (179-408); RED BLOOD CELL COUNT(AUTO) 3.74 MIL/uL (3.63-4.92); WHITE BLOOD COUNT (AUTO) 4.3 K/uL (3.8-11.8)
[2020-07-11 07:50] VITALS: BP 135/48
[2020-07-11 07:50] LABS: THYROID STIMULATING HORMONE 4.935 mIU/mL (0.358-3.740)
[2020-07-11 08:08] LABS: BILIRUBIN,TOTAL 0.3 mg/dL (0.2-1.0); CREATININE 0.9 mg/dL (0.6-1.3); PHOSPHOROUS 3.9 mg/dL (2.5-4.9); POTASSIUM 4.5 mmol/L (3.5-5.1); TOTAL PROTEIN, SERUM 6.7 g/dL (6.4-8.2)
[2020-07-11] MEDS: FLUOXETINE HCL 20 MG CAPSULE PO SCH (08:09)
[2020-07-11] MEDS: DIVALPROEX 125 MG TABLET.DR PO SCH ×3 (08:09→21:29)
[2020-07-11] MEDS: AMLODIPINE 5 MG TABLET PO SCH ×2 (08:09→21:29)
[2020-07-11] MEDS: ENSURE ENLIVE (VAN) 240 ML LIQUID PO SCH ×2 (13:00→17:35)
[2020-07-11 16:05] VITALS: BP 117/39
[2020-07-11 21:01] VITALS: BP 131/47
[2020-07-11] MEDS: ATORVASTATIN 10 MG TABLET PO SCH (21:28)
[2020-07-11] MEDS: OLANZAPINE 2.5 MG TABLET PO SCH (21:28)
[2020-07-11] MEDS: TRAZODONE 50 MG TABLET PO SCH (21:29)
[2020-07-12] MEDS: PANTOPRAZOLE SODIUM 40 MG TABLET.DR PO SCH (07:00)
[2020-07-12 07:30] VITALS: BP 128/48
[2020-07-12] MEDS: AMLODIPINE 5 MG TABLET PO SCH ×2 (08:36→20:33)
[2020-07-12] MEDS: FLUOXETINE HCL 20 MG CAPSULE PO SCH (08:36)
[2020-07-12] MEDS: DIVALPROEX 125 MG TABLET.DR PO SCH ×3 (08:36→20:33)
[2020-07-12] MEDS: ENSURE ENLIVE (VAN) 240 ML LIQUID PO SCH ×3 (08:38→18:02)
[2020-07-12 16:00] VITALS: BP 110/48
[2020-07-12] MEDS: TRAZODONE 50 MG TABLET PO SCH (20:33)
[2020-07-12] MEDS: OLANZAPINE 2.5 MG TABLET PO SCH (20:33)
[2020-07-12] MEDS: ATORVASTATIN 10 MG TABLET PO SCH (20:33)
[2020-07-12 20:38] VITALS: BP 126/44
[2020-07-13 07:30] VITALS: BP 138/56
[2020-07-13] MEDS: ENSURE ENLIVE (VAN) 240 ML LIQUID PO SCH (09:00)
[2020-07-13 09:13] VITALS: BP 138/56
[2020-07-13] MEDS: PANTOPRAZOLE SODIUM 40 MG TABLET.DR PO SCH (09:13)
[2020-07-13] MEDS: DIVALPROEX 125 MG TABLET.DR PO SCH (09:13)
[2020-07-13] MEDS: AMLODIPINE 5 MG TABLET PO SCH (09:13)
[2020-07-13] MEDS: FLUOXETINE HCL 20 MG CAPSULE PO SCH (09:13)
== END 2020-07-13 14:13 | DRG 885 ==
LOC: ER 14:27 → GPS 19:47
PROVIDERS: ADMIT Psychiatry & Neurology Psychiatry; ATTEND Internal Medicine
DX: F32.3 Major depressive disorder, single episode, severe with psychotic features (principal); N39.0 Urinary tract infection, site not specified; D68.69 Other thrombophilia; F03.91 Unspecified dementia, unspecified severity, with behavioral disturbance; Z91.14 Patient's other noncompliance with medication regimen; R62.7 Adult failure to thrive; Z74.09 Other reduced mobility; Z68.20 Body mass index [BMI] 20.0-20.9, adult; F41.9 Anxiety disorder, unspecified; E86.0 Dehydration; E78.5 Hyperlipidemia, unspecified; I10 Essential (primary) hypertension; I25.10 Atherosclerotic heart disease of native coronary artery without angina pectoris; Z87.440 Personal history of urinary (tract) infections
CPT/HCPCS: 36415; 80307; 80329; 83735; 84100; 84443; 85025; 87086; 93005; A4663; G0480; G0480-TC